=== PATIENT | female | born 1995 | race Two or more races ===

== ENCOUNTER 2017-04-24 10:14 | Emergency (ER) | payer MEDICAID ==
[~2017-04-24] VITALS: Ht 175.3 cm; Wt 89.3 kg
[2017-04-24 13:34] VITALS: BP 115/75
== END 2017-04-24 12:34 | disposition home or self-care (01) ==
LOC: ED 10:14
DX: M54.2 Cervicalgia (principal); M54.9 Dorsalgia, unspecified
CPT/HCPCS: J1885